=== PATIENT | female | born 1985 | race Caucasian/White ===

== ENCOUNTER 2020-11-16 17:32 | Inpatient (IN) | payer OTHER ==
[~2020-11-16] VITALS: Ht 167.6 cm; Wt 71.7 kg
--- NOTE | 2020-11-16 17:41 | NUR ---
PT BIB CARE FLIGHT FROM [facility], FOR INTERMITTENT HEART PALPITATIONS. PT STATED STARTED ON WEDNESDAY (11/14/2020), FELT PRESSURE ON CHEST AND FELT RAPID PULSE. PROCESS CONTROL ENGINEER PT RECEIVED 324 [address]IRIN, 3900 UNITS HEPARIN BOLUS. PT CHANGED INTO GOWN, MONITORS IN PLACE. AT BS
[2020-11-16] MEDS ORDERED: HEPARIN 25,000 UNITS/250ML PMX 250 ML ONE (17:50)
[2020-11-16] MEDS ORDERED: HEPARIN 5,000 UNITS/ML, 1ML IV PRN (18:00)
[2020-11-16] MEDS ORDERED: HEPARIN 5,000 UNITS/ML, 1ML IV ONE (18:00)
[2020-11-16] MEDS ORDERED: HEPARIN 25,000 UNITS/250ML PMX 250 ML IV PRN (18:00)
[2020-11-16] MEDS ORDERED: MULT-257 PO (18:07)
[2020-11-16] MEDS ORDERED: PROMETHAZINE 25 MG/ML, 1ML IM PRN (18:30)
[2020-11-16] MEDS ORDERED: ONDANSETRON 2MG/ML, 2ML IVPush PRN (18:30)
[2020-11-16] MEDS ORDERED: NITROGLYCERIN 0.4 MG BOTTLE (25 TABS) SL PRN (18:30)
[2020-11-16] MEDS ORDERED: ONDANSETRON ODT 4 MG PO PRN (18:30)
[2020-11-16] MEDS ORDERED: hydrALAzine 20 MG/ML, 1ML IVPush PRN (18:30)
[2020-11-16] MEDS ORDERED: morphine SULFATE 10 MG/ML, 1ML IVPush PRN (18:30)
[2020-11-16] MEDS ORDERED: DOCUSATE 100 MG CAPSULE PO PRN (18:30)
[2020-11-16] MEDS ORDERED: OXYcodone IR 5MG TABLET PO PRN (18:30)
[2020-11-16] MEDS ORDERED: ACETAMINOPHEN 325 MG TABLET PO PRN (18:30)
[2020-11-16] MEDS ORDERED: BISACODYL 10 MG SUPP PR PRN (18:30)
[2020-11-16] MEDS ORDERED: POLYETHYLENE GLYCOL 17 GM PACKET PO PRN (18:30)
--- NOTE | 2020-11-16 18:48 | NUR ---
Pt to be admitted to CARDIAC TELE, room 515. Report called to MARTINE.
[2020-11-16 19:02] LABS: FREE T4 (FREE THYROXINE) 1.14 ng/dL (0.76-1.46)
[2020-11-16 19:49] VITALS: BP 117/80
[2020-11-16] MEDS: SODIUM CHLORIDE 0.9% 1,000 ML IV SCH (19:51)
[2020-11-17] MEDS ORDERED: OMNIPAQUE 350 MG/ML, 100ML BOTTLE ONE (01:01)
[2020-11-17 01:32] VITALS: BP 108/74
[2020-11-17 05:32] LABS: BASOPHILS % (AUTO) 1 % (0-1); EOSINOPHILS % (AUTO) 3 % (1-7); LYMPHOCYTES % (AUTO) 38 % (22-44); MEAN CORPUSCULAR HEMOGLOBIN 32.4 pg (27.0-34.8); MEAN CORPUSCULAR HGB CONC 34.2 g/dL (32.4-35.8); MEAN PLATELET VOLUME 7.3 fL (7.4-10.4); MONOCYTES % (AUTO) 12 % (2-9); NEUTROPHILS % (AUTO) 47 % (42-75); PLATELET COUNT 294 x10^3/uL (130-400); RED CELL DISTRIBUTION WIDTH 12.6 % (9.6-15.2)
[2020-11-17 05:34] LABS: ALANINE AMINOTRANSFERASE 29 U/L (12-78); ALBUMIN 2.9 g/dL (3.4-5.0); ANION GAP 4 mmol/L (5-15); CALCIUM 8.3 mg/dL (8.5-10.1); CHLORIDE 112 mmol/L (98-107); CHOLESTEROL, TOTAL 107 mg/dL (140-239); CREATININE 0.69 mg/dL (0.55-1.02); TRIGLYCERIDES 129 mg/dL (50-200); VLDL CHOLESTEROL 26 mg/dL (0-25)
[2020-11-17 05:36] LABS: ALKALINE PHOSPHATASE 56 U/L (45-117); BILIRUBIN,TOTAL 0.2 mg/dL (0.2-1.0); HDL CHOL % 25 % (28-40); HDL CHOLESTEROL (DIRECT) 27 mg/dL (40-60); LDL CHOLESTEROL,CALCULATED 54 mg/dL (54-169); MD NO; TOTAL PROTEIN 6.9 g/dL (6.4-8.2)
[2020-11-17] MEDS: ASPIRIN 325 MG TABLET EC PO SCH (05:46)
[2020-11-17] MEDS: SODIUM CHLORIDE 0.9% 1,000 ML IV SCH (05:46)
[2020-11-17 07:11] VITALS: BP 112/76
[2020-11-17] MEDS ORDERED: KETOROLAC 30 MG/1 ML ONE (09:17)
[2020-11-17] MEDS ORDERED: KETOROLAC 30 MG/1 ML IM ONE (09:30)
[2020-11-17 13:02] VITALS: BP 109/74
[2020-11-17] MEDS ORDERED: IBUPROFEN 200 MG TABLET ONE (14:58)
[2020-11-17 18:34] VITALS: BP 113/69
[2020-11-18] MEDS: IBUPROFEN 600 MG TABLET PO PRN ×2 (00:34→15:04)
[2020-11-18 01:24] VITALS: BP 104/66
[2020-11-18] MEDS: ASPIRIN 325 MG TABLET EC PO SCH (06:17)
[2020-11-18 07:18] VITALS: BP 100/69
[2020-11-18] MEDS ORDERED: REGADENOSON 0.4 MG/5 ML SYRINGE ONE (08:45)
[2020-11-18 12:18] VITALS: BP 112/75
[2020-11-18] MEDS ORDERED: IBUP-1222 PO (12:31)
[2020-11-18] MEDS ORDERED: IBUPROFEN 200 MG TABLET ONE (14:30)
== END 2020-11-18 15:45 | disposition home or self-care (01) | DRG 281 ==
LOC: ED 18:58 → 5SO 19:08 → DCLOUNGE 11-18 15:40
PROVIDERS: ADMIT Internal Medicine; ATTEND Hospitalist
DX: I49.3 Ventricular premature depolarization (principal); I21.A1 Myocardial infarction type 2; I30.9 Acute pericarditis, unspecified; Z82.3 Family history of stroke; Z87.891 Personal history of nicotine dependence
CPT/HCPCS: 36415; 93017; 96374; 99285; C8929; 71275; 78452; 80053; 80061; 83036; 83735; 84100; 84439; 84443; 84484; 85025; 85520; 93005; G0378; J1644; J1885; J2785; Q9957; Q9967; A9502; J7030